=== PATIENT | female | born 1970 | race Caucasian/White ===

== ENCOUNTER 2020-02-10 10:57 | Emergency (ER) | payer BC, SELFPAY ==
[2020-02-10 10:58] VITALS: BP 156/62; PULSE 82; RESP 16; TEMP 36.6; O2SAT 100; BMI 25.8
[2020-02-10 11:31] VITALS: BP 156/62; PULSE 82; RESP 16; TEMP 36.6; O2SAT 100
--- NOTE | 2020-02-10 11:34 | EKG12_ITS ---
Test Reason : SOB Blood Pressure : / mmHG Vent. Rate : 058 BPM Atrial Rate : 058 BPM P-R Int : 180 ms QRS Dur : 084 ms QT Int : 436 ms P-R-T Axes : -04 049 015 degrees QTc Int : 428 ms Sinus bradycardia Otherwise normal ECG Confirmed by RAAD CRAWFORD, AUBREE ([id number]), visual effects editor BEN SHAH ([id number]) on 02/12/2020 9:40:27 AM Referred By: ISIAH Confirmed By:AUBREE SHANKAR MD
--- NOTE | 2020-02-10 11:58 | RAD_ITS ---
STUDY: X-RAY CHEST REASON FOR EXAM: Female, 49 years old. cough, sob, loss of taste and smell, chills. sob has worsened within the past 2 days. TECHNIQUE: Single AP portable view of the chest. COMPARISON: None. FINDINGS: The lungs are clear and expanded. There is no demonstrated pleural abnormality. Normal size heart. Normal mediastinum and mavis. Normal visualized pulmonary arteries. Normal visualized aortic arch and descending thoracic aorta. Normal visualized thoracic spine. Normal visualized ribs, clavicles, and shoulders. There is no demonstrated abnormality of the visualized soft tissue structures of the upper abdomen. RAD/Chest 1 View (Portable) IMPRESSION: Normal x-ray examination of the chest. Electronically Signed: Sam Gordillo MD at 12:09 EST Tel , Service support ,
[2020-02-10 12:01] LABS: Absolute Lymphocyte Count 1.01 X10^3/uL (0.83-4.51); Absolute Neutrophil Count 5.5 X10^3/uL (2.0-7.7); Basophil# 0.01 X10^3/uL; Basophil% 0.1 % (0-1); Eosinophil# 0.03 X10^3/uL; Eosinophils% 0.4 % (0-5); Hematocrit 39.8 % (37-47); Hemoglobin 13.3 g/dL (12.0-15.0); Lymphocyte # 1.01 X10^3/ul (4.0); Lymphocyte % 14.6 % (19-41); Mean Corp Hgb Conc 33.4 g/dL (32-36); Mean Corpuscular Hgb 27.8 pg (27.0-32.0); Mean Corpuscular Volume 83.3 fL (81-99); Mean Platelet Vol. 8.8 fl (6.2-12.0); Monocyte# 0.31 X10^3/uL; Monocyte% 4.5 % (0-10); NRBC Flagged by Analyzer 0 % (0-5); Neutrophil # 5.52 X10^3/uL (2.7-7.7); Platelet Count 205 K/mm3 (150-450); RBC Distribution Width SD 39.3 fl (35.1-43.9); Red Blood Count 4.78 M/mm3 (4.2-5.4); White Blood Count 6.9 K/mm3 (4.4-11.0)
[2020-02-10 12:04] VITALS: BP 111/78; PULSE 59; RESP 11; O2SAT 100
[2020-02-10 12:05] VITALS: BP 111/78; PULSE 59; RESP 11; TEMP 36.6; O2SAT 100
[2020-02-10 12:17] LABS: AST(SGOT) 28 U/L (15-37); Alanine Aminotransfer ALT/SGPT 21 U/L (13-56); Albumin, Serum 3.1 g/dL (3.2-5.0); Alkaline Phosphatase 64 U/L (45-117); Anion Gap 7 (5-15); BUN 14 mg/dL (7-18); BUN/Creat Ratio 15.2 RATIO (10-20); Calcium,Total 8.7 mg/dL (8.5-10.1); Chloride 105 mmol/L (98-107); Creatinine, Serum 0.92 mg/dL (0.55-1.02); EST Glomerular Filtration Rate 69 mL/min (>60); Est Glom Filt Rate - Afr Amer 83 mL/min (>60); Estimated Creatinine Clearance 74.62 ml/min; Glucose 84 mg/dL (74-106); Potassium 3.5 mmol/L (3.5-5.1); Protein, Total 6.1 g/dL (6.4-8.2); Sodium Level 140 mmol/L (136-145)
--- NOTE | 2020-02-10 13:07 | ED.VISSUMM ---
- ER Visit Summary Date of Service: 02/10/20 Chief Complaint: Shortness of breath and dizziness History of Present Illness: The patient is a 49 F who presents with shortness of breath and dizziness that is been getting worse over the past 4 days. Patient describes her dizziness as a spinning sensation. Patient states her symptoms improve whenever she lays down. Patient admits to subjective chills. Patient states her symptoms have been waxing and waning over the past 4 days. Patient does admit to loss of taste and smell for the last 2 weeks. Patient also admits to some heaviness in her chest. Patient also admits to some myalgias and arthralgias. Physical Examination: Vital signs are stable. Patient is afebrile. Patient is in no acute distress. Oral mucosa is pink and moist. Neck is supple. Trachea is midline. There is no JVD noted. Heart was regular rate and rhythm. Lungs are clear and equal bilaterally. Abdomen is soft. Bowel sounds are normal. There is no tenderness. There is no rebound or guarding noted. Skin is warm dry. Cranial nerves II through XII are intact. There are no focal motor or sensory deficits noted. Extremities are intact. There is no calf tenderness or edema. Test Results: EKG is obtained. On my interpretation it shows normal sinus rhythm with a rate of 58. There are no acute ST or T wave changes. Portable 1 view chest x-ray was obtained. On my interpretation, lung meza are clear. There is normal cardiac silhouette. Bony thorax is normal. There is no acute process noted. Radiologist also interpreted the x-ray and agrees. CBC and comprehensive metabolic profile were obtained and were within normal limits. COVID-19 rapid antigen test was obtained and was positive. Emergency Department Course and Treatment: Patient was feeling better on reevaluation. Patient was advised of her findings. Patient was instructed to quarantine for the next 10 days. Patient was instructed to follow-up with her primary care physician in 5 to 7 days. Patient understood and was agreeable with the plan. All questions were answered. Disposition: Discharge home Impression: 1. COVID-19 This note was generated with [employer] software. It may contain incorrect words, spelling, and punctuation that were not noted in review of the chart prior to signing ED Disposition - Plan for ED Patient: Disposition: Home or Assisted Living Diagnosis: COVID-19 Instructions: Coronavirus Disease 2019 (COVID-19): Overview, Coronavirus Disease 2019 (COVID-19): Caring for Yourself or Others Referrals: Vivek Graham DO [Primary Care Provider] - 5-7 Days
[2020-02-10 13:23] VITALS: BP 109/76; PULSE 57; RESP 16; O2SAT 97
== END 2020-02-10 13:24 | disposition home or self-care (01) ==
PROVIDERS: Emergency Provider Emergency Medicine; PCP Student in an Organized Health Care Education/Training Program
DX: U07.1 COVID-19 (principal); R68.83 Chills (without fever); R07.9 Chest pain, unspecified; R06.00 Dyspnea, unspecified; M79.10 Myalgia, unspecified site; R51.9 Headache, unspecified; R20.2 Paresthesia of skin
CPT/HCPCS: 71045; 80053; 85025; 87426; 93005; 99284; A4216